=== PATIENT | female | born 1975 | race Caucasian/White ===

== ENCOUNTER 2016-09-22 22:35 | Emergency (ER) | payer MEDICAID ==
[~2016-09-22 22:35] MED LIST: FLO4 PO; HYDROCODONE/ACE1 TA2 PO; MOTRIN800 MG PO; MYL80 CH; STOOL SOFTENER100 MG PO
[2016-09-23 00:27] VITALS: BP 131/83
== END 2016-09-23 00:27 | disposition home or self-care (01) ==
LOC: ED 22:35
DX: M79.1 Myalgia (principal); H65.92 Unspecified nonsuppurative otitis media, left ear; H92.01 Otalgia, right ear; E66.9 Obesity, unspecified
CPT/HCPCS: J1885

== ENCOUNTER 2016-10-23 16:01 | Emergency (ER) | payer MEDICAID ==
[2016-10-23 18:14] VITALS: BP 99/57
== END 2016-10-23 18:00 | disposition home or self-care (01) ==
LOC: ED 16:01
DX: T78.40XA Allergy, unspecified, initial encounter (principal); H83.09 Labyrinthitis, unspecified ear; M79.1 Myalgia; M25.50 Pain in unspecified joint; Z79.1 Long term (current) use of non-steroidal anti-inflammatories (NSAID); X58.XXXA Exposure to other specified factors, initial encounter
CPT/HCPCS: J1885; J7512; J8597; Q0163

== ENCOUNTER 2018-01-08 12:11 | Emergency (ER) | payer MEDICAID ==
[~2018-01-08] VITALS: Ht 157.5 cm; Wt 86.6 kg
[2018-01-08 12:19] VITALS: Ht 157.5 cm; Wt 86.6 kg
[2018-01-08 13:18] LABS: microscopic required? NO
[2018-01-08 14:06] LABS: UA SPECIFIC GRAVITY 1.025 (1.005-1.035); urine erythrocyte NEGATIVE (NEGATIVE)
[2018-01-08 15:38] VITALS: BP 120/64
== END 2018-01-08 15:38 | disposition home or self-care (01) ==
LOC: ED 12:11
PROVIDERS: Emergency Medicine
DX: R51 Headache (principal); R11.0 Nausea; R50.9 Fever, unspecified; Z90.49 Acquired absence of other specified parts of digestive tract; Z98.890 Other specified postprocedural states
CPT/HCPCS: J1885; J8597

== ENCOUNTER 2018-10-14 21:58 | Emergency (ER) | payer MEDICAID ==
[~2018-10-14] VITALS: Ht 157.5 cm; Wt 90.3 kg
[2018-10-14 22:21] VITALS: Ht 157.5 cm; Wt 90.3 kg
[2018-10-15 00:51] LABS: BASOPHIL % 0.6 % (0-2); PLATELET COUNT 361 x10^3mcL (130-400); RED CELL DISTRIBUTION WIDTH 14.5 % (11.5-14.5)
[2018-10-15 01:03] LABS: CALCIUM 8.8 mg/dL (8.5-10.1); CARBON DIOXIDE 30.5 mmol/L (21-32); CHLORIDE SERUM 105 mmol/L (98-107); CREATININE SERUM 0.7 mg/dL (0.6-1.0); GFR1 > 60 mL/min; GLUCOSE SERUM 108 mg/dL (74-106); POTASSIUM SERUM 3.8 mmol/L (3.5-5.1); SODIUM SERUM 142 mmol/L (136-145)
[2018-10-15 01:16] LABS: ALBUMIN 3.5 g/dL (3.4-5.0); ALKALINE PHOSPHATASE 110 U/L (46-116); ALT/SGPT 49 U/L (14-59); AST/SGOT 20 U/L (15-37); BILIRUBIN TOTAL 0.2 mg/dL (0.20-1.00); CHOLESTEROL 154 mg/dL (<200); LIPASE 149 IU/L (73-393); T4(THYROXINE) 7.9 ug/dL (4.7-13.3); TOTAL PROTEIN, SERUM 7.6 g/dL (6.4-8.2)
[2018-10-15 02:13] LABS: microscopic required? NO
[2018-10-15 02:19] LABS: UA SPECIFIC GRAVITY <=1.005 (1.005-1.035); urine erythrocyte NEGATIVE (NEGATIVE)
[2018-10-15 03:02] VITALS: BP 123/79
== END 2018-10-15 03:02 | disposition home or self-care (01) ==
LOC: ED 21:58
PROVIDERS: Emergency Medicine
DX: R10.12 Left upper quadrant pain (principal); R19.7 Diarrhea, unspecified; B80 Enterobiasis; E66.9 Obesity, unspecified; Z68.36 Body mass index [BMI] 36.0-36.9, adult
CPT/HCPCS: J2405; J3010; J7030

== ENCOUNTER 2018-10-17 03:15 | Emergency (ER) | payer MEDICAID ==
[~2018-10-17] VITALS: Ht 157.5 cm; Wt 89.8 kg
[2018-10-17 03:19] VITALS: Ht 157.5 cm; Wt 89.8 kg
[2018-10-17 03:51] VITALS: BP 138/64
== END 2018-10-17 03:51 | disposition home or self-care (01) ==
LOC: ED 03:15
DX: B80 Enterobiasis (principal); Z90.49 Acquired absence of other specified parts of digestive tract

== ENCOUNTER 2019-07-26 18:47 | Emergency (ER) | payer MEDICAID ==
[~2019-07-26] VITALS: Ht 157.5 cm; Wt 88.9 kg
[2019-07-26 19:14] VITALS: Ht 157.5 cm; Wt 88.9 kg
[2019-07-26 20:37] LABS: BASOPHIL % 0.1 % (0-2); PLATELET COUNT 372 x10^3mcL (130-400); RED CELL DISTRIBUTION WIDTH 14.4 % (11.5-14.5)
[2019-07-26 20:55] LABS: CALCIUM 9.5 mg/dL (8.5-10.1); CARBON DIOXIDE 31.1 mmol/L (21-32); CHLORIDE SERUM 100 mmol/L (98-107); CREATININE SERUM 0.7 mg/dL (0.6-1.0); GFR1 > 60 mL/min; GLUCOSE SERUM 109 mg/dL (74-106); POTASSIUM SERUM 4.1 mmol/L (3.5-5.1); SODIUM SERUM 138 mmol/L (136-145)
[2019-07-26 21:00] LABS: ALBUMIN 3.7 g/dL (3.4-5.0); ALKALINE PHOSPHATASE 125 U/L (46-116); ALT/SGPT 58 U/L (14-59); AST/SGOT 23 U/L (15-37); BILIRUBIN TOTAL 0.2 mg/dL (0.20-1.00); TOTAL PROTEIN, SERUM 7.7 g/dL (6.4-8.2)
[2019-07-26 21:09] LABS: microscopic required? NO
[2019-07-26 21:23] LABS: urine erythrocyte NEGATIVE (NEGATIVE)
[2019-07-26 22:37] VITALS: BP 119/83
== END 2019-07-26 22:37 | disposition home or self-care (01) ==
LOC: ED 18:47
PROVIDERS: Emergency Medicine
DX: R07.89 Other chest pain (principal); R10.9 Unspecified abdominal pain; M79.605 Pain in left leg; R51 Headache; I50.9 Heart failure, unspecified; Z90.49 Acquired absence of other specified parts of digestive tract; Z98.890 Other specified postprocedural states
CPT/HCPCS: J1885; J2270; J2405

== ENCOUNTER 2019-12-08 18:37 | Emergency (ER) | payer MEDICAID ==
[~2019-12-08] VITALS: Ht 157.5 cm; Wt 87.5 kg
[2019-12-08 18:44] VITALS: Ht 157.5 cm; Wt 87.5 kg
[2019-12-08 22:42] VITALS: BP 105/62
== END 2019-12-08 22:42 | disposition home or self-care (01) ==
LOC: ED 18:37
DX: T78.40XA Allergy, unspecified, initial encounter (principal); I50.9 Heart failure, unspecified; Z98.890 Other specified postprocedural states; Z90.49 Acquired absence of other specified parts of digestive tract; X58.XXXA Exposure to other specified factors, initial encounter
CPT/HCPCS: J0171; J7512; Q0163